=== PATIENT | male | born 1975 | race Two or more races ===

== ENCOUNTER 2021-05-21 14:35 | Outpatient (CLI) | payer OTHER | END 2021-05-21 23:59 | disposition home or self-care (01) | LOC: LAB 14:35 | PROVIDERS: ATTEND Specialist | DX: Z01.812 Encounter for preprocedural laboratory examination (principal); U07.1 COVID-19 | CPT/HCPCS: C9803; U0003 ==

== ENCOUNTER 2021-06-03 11:21 | Outpatient (CLI) | payer OTHER | END 2021-06-03 23:59 | disposition home or self-care (01) | LOC: LAB 11:21 | PROVIDERS: ATTEND Specialist | DX: Z01.812 Encounter for preprocedural laboratory examination (principal); U07.1 COVID-19 | CPT/HCPCS: C9803; U0003 ==

== ENCOUNTER 2021-07-01 09:00 | Outpatient (CLI) | payer OTHER ==
[2021-07-07] MEDS ORDERED: DILT120C93 PO (10:09)
[2021-07-07] MEDS ORDERED: ASPI-1420 PO (10:09)
== END 2021-07-01 23:59 | disposition home or self-care (01) ==
LOC: LAB 09:00
PROVIDERS: ATTEND Specialist
DX: Z01.812 Encounter for preprocedural laboratory examination (principal); Z20.822 Contact with and (suspected) exposure to COVID-19
CPT/HCPCS: C9803; U0003